=== PATIENT | female | born 1945 | race Caucasian/White ===

== ENCOUNTER → 2016-08-27 | Outpatient (CLI) | payer OTHER ==
[~2016-08-27] MED LIST: ALLOPURINOL100 MG PO; APRESOLINE100 MG PO; ASCORBIC ACID250 MG PO; ASPIR 8181 M1 PO; ASTROVASTIN; CARDURA8 MG PO; COREG25 M1 PO; COZAAR50 MG PO; DUONEB 2.5-0.5 M3 ML AEROSOL; ELIQUIS5 MG PO; FISH OIL300 MG PO; FUROSEMIDE20 MG PO; FUROSEMIDE40 MG PO; IRON325 M1 PO; LANOXIN62.5 MCG PO; LEVEMIR FL100 UNIT/1 SC; LEVEMIR100 UNIT/2 SC; LIPITOR80 MG PO; METFORMIN HCL500 M1 PO; NABI650T PO; NOVOLOG 10100 UNITS/ SC; VITAMIN D31000 UNIT PO; VITAMIN D5000 UNIT PO
== END | disposition home or self-care (01) ==
LOC: NUC 14:16
DX: E11.610 Type 2 diabetes mellitus with diabetic neuropathic arthropathy (principal); L03.116 Cellulitis of left lower limb; L97.523 Non-pressure chronic ulcer of other part of left foot with necrosis of muscle; E11.40 Type 2 diabetes mellitus with diabetic neuropathy, unspecified; G60.8 Other hereditary and idiopathic neuropathies
CPT/HCPCS: 78315; 78999; A9503

== ENCOUNTER 2017-04-09 11:03 | Inpatient (IN) | payer OTHER ==
[~2017-04-09] VITALS: Ht 167.6 cm; Wt 150.0 kg
[~2017-04-09 11:03] MED LIST changes: +BUMEX2 MG PO; +BYSTOLIC10 MG PO; +CATAPRES0.2 MG PO; +IRON160 M1 PO; +PROCRIT10000 UNI1 SC
[2017-04-09 13:42] LABS: HEMATOCRIT 31.3 % (36.0-46.0); MCH 28.8 PG (29.0-34.0); MCHC 31.9 G/DL (30.0-36.0); MCV 90.2 FL (83-99); PLATELET COUNT 89 K/uL (156-360); RBC DIS.WIDTH-CV 19.5 % (11.8-14.6); RED BLOOD COUNT 3.47 M/uL (3.80-5.20); WHITE BLOOD COUNT 5.5 K/uL (4.1-10.2)
[2017-04-09 13:45] LABS: CHLORIDE 106 mEq/L (99-109); SODIUM 137 mEq/L (136-147)
[2017-04-09 13:47] LABS: GLUCOSE 129 mg/dL (70-99)
[2017-04-09 13:48] LABS: ANION GAP 14 MEQ/L (2-14)
[2017-04-09 13:50] LABS: GFR ESTIMATE (CALCULATED) 5 mL/min/
[2017-04-09 13:59] LABS: TROP-I INTERPRETATION NEGATIVE; TROPONIN-I 0.02 ng/mL (0.0-0.30)
[2017-04-09 14:03] LABS: POTASSIUM 6.2 mEq/L (3.7-5.4); UREA NITROGEN (BUN) 166 mg/dL (9-23)
[2017-04-09] MEDS ORDERED: AMLODIPINE BESY10 MG PO (15:18)
[2017-04-09] MEDS ORDERED: IRON325 M1 PO (15:19)
[2017-04-09 16:30] LABS: ADD MIUA? YES; BILIRUBIN NEGATIVE; BLOOD NEGATIVE; COLOR YELLOW ((YELLOW)); GLUCOSE (STRIP) NEGATIVE; KETONES NEGATIVE; LEUKOCYTES NEGATIVE; NITRITE NEGATIVE; PROTEIN (STRIP) 100; SPECIFIC GRAVITY 1.017 (1.000-1.030); UROBILINOGEN 0.2 MG/DL (0.2-1.0)
[2017-04-09 16:37] LABS: BACTERIA RARE /HPF; EPITHELIAL CELLS 1+ /HPF; HYALINE CASTS 0-5 /LPF; MUCUS TRACE /LPF; RED BLOOD CELLS 0-5 /HPF (0-5); WHITE BLOOD CELLS 0-5 /HPF (0-5)
[2017-04-09 19:45] VITALS: BP 119/58
[2017-04-09 20:33] LABS: TROP-I INTERPRETATION NEGATIVE; TROPONIN-I 0.02 ng/mL (0.0-0.30)
[2017-04-09 20:44] LABS: ANION GAP 17 MEQ/L (2-14); CHLORIDE 104 MEQ/L (99-109); GFR ESTIMATE (CALCULATED) 5 mL/min/; GLUCOSE 112 mg/dL (70-99); POTASSIUM 5.5 MEQ/L (3.7-5.4); SAMPLE HEMOLYSIS CHECK 0; SAMPLE ICTERIC CHECK 0; SAMPLE LIPEMIA CHECK 0; SODIUM 141 MEQ/L (136-147)
[2017-04-09 20:52] LABS: UREA NITROGEN (BUN) 177 mg/dL (9-23)
[2017-04-09 23:01] LABS: POINT-OF-CARE METER ID UU13113717
[2017-04-09 23:36] VITALS: BP 120/60
[2017-04-10 03:37] LABS: TROP-I INTERPRETATION NEGATIVE; TROPONIN-I 0.02 ng/mL (0.0-0.30)
[2017-04-10 03:58] VITALS: BP 121/62
[2017-04-10 07:00] LABS: HEMATOCRIT 29.4 % (36.0-46.0); MCHC 31.3 G/DL (30.0-36.0); MCV 92.7 FL (83-99); PLATELET COUNT 81 K/uL (156-360); RBC DIS.WIDTH-CV 19.8 % (11.8-14.6); RBC DIS.WIDTH-SD 66.4 % (39-53); RED BLOOD COUNT 3.17 M/uL (3.80-5.20); WHITE BLOOD COUNT 4.6 K/uL (4.1-10.2)
[2017-04-10 07:29] LABS: ANION GAP 15 MEQ/L (2-14); CHLORIDE 104 MEQ/L (99-109); GFR ESTIMATE (CALCULATED) 5 mL/min/; GLUCOSE 129 mg/dL (70-99); POTASSIUM 5.3 MEQ/L (3.7-5.4); SAMPLE HEMOLYSIS CHECK 0; SAMPLE ICTERIC CHECK 0; SAMPLE LIPEMIA CHECK 0; SODIUM 141 MEQ/L (136-147); UREA NITROGEN (BUN) 161 mg/dL (9-23)
[2017-04-10 08:00] VITALS: BP 147/66
[2017-04-10 08:36] LABS: POINT-OF-CARE METER ID UU14174225
[2017-04-10 11:56] VITALS: BP 147/67
[2017-04-10 11:59] LABS: POINT-OF-CARE METER ID UU14174225
[2017-04-10 14:13] LABS: HBSG INDEX 0.22
[2017-04-10 14:14] LABS: AHBS INDEX 0.73; HEPATITIS B SURFACE ANTIBODY Nonreactive
[2017-04-10 15:21] VITALS: BP 132/62
[2017-04-10 18:47] LABS: HEMATOCRIT 30.5 % (36.0-46.0); MCV 92.1 FL (83-99)
[2017-04-10 20:03] VITALS: BP 126/60
[2017-04-11] VITALS (7 sets, daily range): BP systolic 123–147; BP diastolic 58–69
[2017-04-11 08:44] LABS: POINT-OF-CARE METER ID UU14174225
[2017-04-11 14:05] LABS: ALKALINE PHOSPHATASE 69 IU/L (3-129); ANION GAP 13 MEQ/L (2-14); CHLORIDE 101 MEQ/L (99-109); GLUCOSE 214 mg/dL (70-99); SAMPLE HEMOLYSIS CHECK 0; SAMPLE ICTERIC CHECK 0; SAMPLE LIPEMIA CHECK 0; SODIUM 141 MEQ/L (136-147); TOTAL BILIRUBIN 0.4 MG/DL (0.0-1.0)
[2017-04-11 14:06] LABS: GFR ESTIMATE (CALCULATED) 7 mL/min/; POTASSIUM 4.1 MEQ/L (3.7-5.4); UREA NITROGEN (BUN) 142 mg/dL (9-23)
[2017-04-11 14:29] LABS: HEMATOCRIT 29.2 % (36.0-46.0); MCH 29.3 PG (29.0-34.0); MCHC 31.5 G/DL (30.0-36.0); RBC DIS.WIDTH-CV 19.8 % (11.8-14.6); RBC DIS.WIDTH-SD 66.7 % (39-53); RED BLOOD COUNT 3.14 M/uL (3.80-5.20); WHITE BLOOD COUNT 5.7 K/uL (4.1-10.2)
[2017-04-11 14:52] LABS: PLATELET COUNT 76 K/uL (156-360)
[2017-04-12 03:43] VITALS: BP 120/57
[2017-04-12 06:13] LABS: HEMATOCRIT 29.4 % (36.0-46.0); MCH 29.7 PG (29.0-34.0); MCV 92.7 FL (83-99); RBC DIS.WIDTH-CV 19.5 % (11.8-14.6); RBC DIS.WIDTH-SD 66.2 % (39-53); RED BLOOD COUNT 3.17 M/uL (3.80-5.20); WHITE BLOOD COUNT 5.9 K/uL (4.1-10.2)
[2017-04-12 06:46] LABS: EOSINOPHIL (%) 0.8 % (0-5); EOSINOPHIL COUNT 0.1 K/uL (0-0.3); IMMATURE GRANULOCYTE (%) 0.3 % (0.0-0.7); INSTRUMENT ABS NEUTROPHIL CT 4.4 K/uL; LYMPHOCYTE COUNT 0.9 K/uL (1.0-2.8); MONOCYTE (%) 9.6 % (3-12); MONOCYTE COUNT 0.6 K/uL (0-0.8); NEUTROPHIL (%) 74.6 % (45-76); NEUTROPHIL COUNT 4.4 K/uL (1.8-6.4); PLAT.SUFFICIENCY DECREASED; PLATELET COUNT 76 K/uL (156-360)
[2017-04-12 07:59] LABS: ANION GAP 12 MEQ/L (2-14); CHLORIDE 103 MEQ/L (99-109); GFR ESTIMATE (CALCULATED) 9 mL/min/; GLUCOSE 160 mg/dL (70-99); MAGNESIUM 2.5 mg/dl (1.3-2.7); POTASSIUM 4.1 MEQ/L (3.7-5.4); SAMPLE HEMOLYSIS CHECK 0; SAMPLE ICTERIC CHECK 0; SAMPLE LIPEMIA CHECK 0; SODIUM 141 MEQ/L (136-147); UREA NITROGEN (BUN) 93 mg/dL (9-23)
[2017-04-12 08:56] VITALS: BP 123/58
[2017-04-12 12:50] LABS: POINT-OF-CARE METER ID UU13113681
[2017-04-12 15:47] VITALS: BP 131/62
[2017-04-12 16:52] LABS: POINT-OF-CARE METER ID UU13113717
[2017-04-12 17:04] VITALS: BP 107/55
[2017-04-12 19:17] VITALS: BP 130/58
[2017-04-12 21:09] LABS: POINT-OF-CARE METER ID UU14188625
[2017-04-12 23:49] VITALS: BP 129/61
[2017-04-13 03:44] VITALS: BP 137/65
[2017-04-13 07:47] VITALS: BP 123/60
[2017-04-13 08:08] LABS: HEMATOCRIT 31.4 % (36.0-46.0); MCH 30.5 PG (29.0-34.0); MCHC 32.8 G/DL (30.0-36.0); MCV 92.9 FL (83-99); RBC DIS.WIDTH-CV 19.5 % (11.8-14.6); RBC DIS.WIDTH-SD 65.5 % (39-53); RED BLOOD COUNT 3.38 M/uL (3.80-5.20); WHITE BLOOD COUNT 9.1 K/uL (4.1-10.2)
[2017-04-13 08:20] LABS: ANION GAP 12 MEQ/L (2-14); CHLORIDE 102 MEQ/L (99-109); POTASSIUM 4.1 MEQ/L (3.7-5.4); SAMPLE HEMOLYSIS CHECK 0; SAMPLE ICTERIC CHECK 0; SAMPLE LIPEMIA CHECK 0; SODIUM 140 MEQ/L (136-147)
[2017-04-13 08:27] LABS: POINT-OF-CARE METER ID UU14174225
[2017-04-13 08:27] LABS: GFR ESTIMATE (CALCULATED) 12 mL/min/; GLUCOSE 166 mg/dL (70-99); UREA NITROGEN (BUN) 56 mg/dL (9-23)
[2017-04-13 08:36] LABS: PLAT.SUFFICIENCY DECREASED; PLATELET COUNT 82 K/uL (156-360)
[2017-04-13 11:39] VITALS: BP 116/56
[2017-04-13 16:05] VITALS: BP 119/56
[2017-04-13 17:13] LABS: POINT-OF-CARE METER ID UU14174225
[2017-04-14 04:50] VITALS: BP 128/84
[2017-04-14 07:31] VITALS: BP 135/63
[2017-04-14 07:47] LABS: POINT-OF-CARE METER ID UU14174225
[2017-04-14 15:55] VITALS: BP 115/54
[2017-04-14 22:27] LABS: POINT-OF-CARE USER ID BHSKTD
[2017-04-15 00:54] VITALS: BP 147/65
[2017-04-15 05:44] LABS: POINT-OF-CARE METER ID UU14188625
[2017-04-15 07:26] VITALS: BP 111/53
[2017-04-15 08:22] LABS: EOSINOPHIL (%) 1.3 % (0-5); EOSINOPHIL COUNT 0.1 K/uL (0-0.3); HEMATOCRIT 29.4 % (36.0-46.0); IMMATURE GRANULOCYTE (%) 0.4 % (0.0-0.7); INSTRUMENT ABS NEUTROPHIL CT 5.2 K/uL; LYMPHOCYTE COUNT 0.9 K/uL (1.0-2.8); MCH 29.2 PG (29.0-34.0); MCHC 31.6 G/DL (30.0-36.0); MCV 92.5 FL (83-99); MONOCYTE COUNT 0.5 K/uL (0-0.8); NEUTROPHIL (%) 77.8 % (45-76); NEUTROPHIL COUNT 5.2 K/uL (1.8-6.4); PLATELET COUNT 82 K/uL (156-360); RBC DIS.WIDTH-CV 19.5 % (11.8-14.6); RBC DIS.WIDTH-SD 64.9 % (39-53); RED BLOOD COUNT 3.18 M/uL (3.80-5.20); WHITE BLOOD COUNT 6.7 K/uL (4.1-10.2)
[2017-04-15 08:25] LABS: ANION GAP 12 MEQ/L (2-14); CHLORIDE 100 MEQ/L (99-109); POTASSIUM 4.1 MEQ/L (3.7-5.4); SAMPLE HEMOLYSIS CHECK 0; SAMPLE ICTERIC CHECK 0; SAMPLE LIPEMIA CHECK 0; SODIUM 138 MEQ/L (136-147)
[2017-04-15 08:31] LABS: GFR ESTIMATE (CALCULATED) 9 mL/min/; GLUCOSE 231 mg/dL (70-99); UREA NITROGEN (BUN) 82 mg/dL (9-23)
[2017-04-15] MEDS ORDERED: RENVELA800 MG PO (10:47)
[2017-04-15 15:24] VITALS: BP 121/60
[2017-04-15 16:32] LABS: POINT-OF-CARE METER ID UU14174225
[2017-04-15 21:36] LABS: POINT-OF-CARE METER ID UU14174225
[2017-04-16 00:43] VITALS: BP 124/58
[2017-04-16 07:21] VITALS: BP 123/58
[2017-04-16 11:27] LABS: POINT-OF-CARE METER ID UU14174225
== END 2017-04-16 15:53 | DRG 682 ==
LOC: EME 11:03 → ENRESERV 14:28 → EDOF 14:31 → 5SOUTH 14:31 → ENRESERV 14:55 → 5SOUTH 17:08
PROVIDERS: Emergency Medicine; Internal Medicine; Internal Medicine Nephrology; Nurse Practitioner Adult Health; Physician Assistant Medical
PROC: 02HV33Z Insertion of Infusion Device into Superior Vena Cava, Percutaneous Approach (ICD-10-PCS; principal; 2017-04-09)
PROC: 5A1D60Z (ICD-10-PCS; 2017-04-10)
DX: N17.9 Acute kidney failure, unspecified (principal); J44.0 Chronic obstructive pulmonary disease with (acute) lower respiratory infection; E87.5 Hyperkalemia; E11.22 Type 2 diabetes mellitus with diabetic chronic kidney disease; E87.2 Acidosis; I27.2 Other secondary pulmonary hypertension; J18.9 Pneumonia, unspecified organism; J98.11 Atelectasis; D69.6 Thrombocytopenia, unspecified; D63.1 Anemia in chronic kidney disease; G47.33 Obstructive sleep apnea (adult) (pediatric); I48.91 Unspecified atrial fibrillation; E66.9 Obesity, unspecified; Z68.43 Body mass index [BMI] 50.0-59.9, adult; M10.9 Gout, unspecified; L89.622 Pressure ulcer of left heel, stage 2; I83.018 Varicose veins of right lower extremity with ulcer other part of lower leg; L97.811 Non-pressure chronic ulcer of other part of right lower leg limited to breakdown of skin; L89.899 Pressure ulcer of other site, unspecified stage; R21 Rash and other nonspecific skin eruption; E78.00 Pure hypercholesterolemia, unspecified; I25.10 Atherosclerotic heart disease of native coronary artery without angina pectoris; I50.30 Unspecified diastolic (congestive) heart failure; N28.1 Cyst of kidney, acquired; E11.610 Type 2 diabetes mellitus with diabetic neuropathic arthropathy; N18.6 End stage renal disease; I13.2 Hypertensive heart and chronic kidney disease with heart failure and with stage 5 chronic kidney disease, or end stage renal disease
CPT/HCPCS: 36415; 71010; 71250; 74176; 80048; 80048 91; 80053; 80069; 81003; 82948; 83540; 83735; 84100; 84466; 84484; 85014; 85018; 85025; 85027; 86706; 87086; 87340; 93005; 93306; 99202; 99281; 99285; C1750; C1894; J0456; J0610; J0690; J0696; J0881; J1644; J1815; J1940; J2250; J2405; J3010; J7050; P9047; S0020

== ENCOUNTER 2017-06-26 10:46 | Day surgery (SDC) | payer OTHER ==
[~2017-06-26] VITALS: Ht 167.6 cm; Wt 119.7 kg
[~2017-06-26 10:46] MED LIST changes: +AMLODIPINE BESY10 MG PO; +CARVEDILOL25 MG PO; +DIALYVITE 3,001 EACH PO; +RENVELA800 MG PO
[2017-06-26 11:25] LABS: HEMATOCRIT 32.5 % (36.0-46.0); MCH 31.8 PG (29.0-34.0); MCHC 32.3 G/DL (30.0-36.0); MCV 98.5 FL (83-99); MEAN PLAT.VOLUME 11.4 uM^3 (9.5-12.4); PLATELET COUNT 144 K/uL (156-360); RBC DIS.WIDTH-CV 17.7 % (11.8-14.6); RBC DIS.WIDTH-SD 63.2 % (39-53); WHITE BLOOD COUNT 4.6 K/uL (4.1-10.2)
[2017-06-26 11:38] VITALS: BP 120/57
[2017-06-26 11:44] LABS: ANION GAP 12 MEQ/L (2-14); CHLORIDE 96 MEQ/L (99-109); POTASSIUM 3.8 MEQ/L (3.7-5.4); SAMPLE HEMOLYSIS CHECK 0; SAMPLE ICTERIC CHECK 0; SAMPLE LIPEMIA CHECK 0; SODIUM 138 MEQ/L (136-147)
[2017-06-26 11:50] LABS: GFR ESTIMATE (CALCULATED) 14 mL/min/; GLUCOSE 155 mg/dL (70-99); UREA NITROGEN (BUN) 21 mg/dL (9-23)
[2017-06-26 12:03] LABS: POINT-OF-CARE METER ID UU14174212
[2017-06-26 12:19] LABS: METH RESISTANT S AUREUS PCR POSITIVE (NEGATIVE)
[2017-06-26 12:27] LABS: PROBE CHECK PASS
[2017-06-26 16:05] VITALS: BP 105/53
[2017-06-26 16:10] LABS: POINT-OF-CARE METER ID UU13113675
[2017-06-26 16:40] VITALS: BP 105/59
== END 2017-06-26 16:50 | disposition home or self-care (01) ==
LOC: SDC 10:46
PROVIDERS: Surgery
DX: I12.0 Hypertensive chronic kidney disease with stage 5 chronic kidney disease or end stage renal disease (principal); E11.22 Type 2 diabetes mellitus with diabetic chronic kidney disease; N18.6 End stage renal disease; Z99.2 Dependence on renal dialysis; I25.10 Atherosclerotic heart disease of native coronary artery without angina pectoris; I48.91 Unspecified atrial fibrillation; Z79.01 Long term (current) use of anticoagulants; Z79.4 Long term (current) use of insulin; I44.0 Atrioventricular block, first degree
CPT/HCPCS: 80048; 82948; 85027; 87641; J0690; J1644; J2250; J2405; J2720; J3010

== ENCOUNTER → 2017-09-27 | Outpatient (CLI) | payer OTHER ==
[~2017-09-27] MED LIST changes: +LIPITOR40 MG PO
== END | disposition home or self-care (01) ==
LOC: AMB 08:13
PROC: 02PYX3Z Removal of Infusion Device from Great Vessel, External Approach (ICD-10-PCS; principal; 2017-09-27)
DX: Z45.2 Encounter for adjustment and management of vascular access device (principal); N18.6 End stage renal disease

== ENCOUNTER 2017-10-24 10:31 | Inpatient (IN) | payer OTHER ==
[~2017-10-24] VITALS: Ht 167.6 cm; Wt 113.0 kg
[2017-10-24 11:22] LABS: BASOPHIL (%) 0.1 % (0-1); EOSINOPHIL (%) 0 % (0-5); HEMATOCRIT 30.6 % (36.0-46.0); HEMOGLOBIN 10.3 G/DL (11.9-15.5); IMMATURE GRANULOCYTE (%) 1.6 % (0.0-0.7); LYMPHOCYTE (%) 6.8 % (15-42); LYMPHOCYTE COUNT 0.8 K/uL (1.0-2.8); MCH 32.1 PG (29.0-34.0); MCHC 33.7 G/DL (30.0-36.0); MCV 95.3 FL (83-99); MONOCYTE (%) 6.5 % (3-12); MONOCYTE COUNT 0.8 K/uL (0-0.8); NEUTROPHIL COUNT 10.2 K/uL (1.8-6.4); PLATELET COUNT 119 K/uL (156-360); RBC DIS.WIDTH-CV 17.4 % (11.8-14.6); RBC DIS.WIDTH-SD 61.6 % (39-53); RED BLOOD COUNT 3.21 M/uL (3.80-5.20); WHITE BLOOD COUNT 11.9 K/uL (4.1-10.2)
[2017-10-24 11:31] LABS: CHLORIDE 94 mEq/L (99-109); POTASSIUM 4.3 mEq/L (3.7-5.4); SODIUM 138 mEq/L (136-147)
[2017-10-24 11:33] LABS: GLUCOSE 78 mg/dL (70-99)
[2017-10-24 11:37] LABS: CREATININE 9.1 mg/dL (0.6-1.3); GFR ESTIMATE (CALCULATED) 5 mL/min/
[2017-10-24 11:38] LABS: UREA NITROGEN (BUN) 98 mg/dL (9-23)
[2017-10-24] MEDS ORDERED: CARDURA8 MG PO (22:15)
[2017-10-24] MEDS ORDERED: BYSTOLIC10 MG PO (22:16)
[2017-10-24] MEDS ORDERED: AMLODIPINE BESY10 MG PO (22:16)
[2017-10-25] VITALS (7 sets, daily range): BP systolic 96–116; BP diastolic 51–60
[2017-10-25 05:15] LABS: C-REACTIVE PROTEIN 343.9 MG/L (0-10)
[2017-10-25 06:13] LABS: HEMATOCRIT 31.2 % (36.0-46.0); HEMOGLOBIN 10.1 G/DL (11.9-15.5); MCHC 32.4 G/DL (30.0-36.0); MCV 95.7 FL (83-99); PLATELET COUNT 128 K/uL (156-360); RBC DIS.WIDTH-CV 17.4 % (11.8-14.6); RBC DIS.WIDTH-SD 60.5 % (39-53); RED BLOOD COUNT 3.26 M/uL (3.80-5.20); WHITE BLOOD COUNT 6.3 K/uL (4.1-10.2)
[2017-10-25 06:23] LABS: ALBUMIN 2.7 G/DL (3.2-4.8); ALKALINE PHOSPHATASE 110 IU/L (3-129); ALT (GPT) 86 IU/L (3-49); AST (GOT) 136 IU/L (2-34); CHLORIDE 96 MEQ/L (99-109); GFR ESTIMATE (CALCULATED) 9 mL/min/; POTASSIUM 4.7 MEQ/L (3.7-5.4); SODIUM 136 MEQ/L (136-147); TOTAL BILIRUBIN 0.9 MG/DL (0.0-1.0); TOTAL PROTEIN 6.7 G/DL (6.4-8.3); UREA NITROGEN (BUN) 50 mg/dL (9-23)
[2017-10-25 06:26] LABS: CREATININE 5.2 MG/DL (0.6-1.3); GLUCOSE 174 mg/dL (70-99)
[2017-10-25 07:59] LABS: ERTH.SED.RATE > 130 MM/HR (0-30)
[2017-10-26 03:46] VITALS: BP 111/61
[2017-10-26 08:37] VITALS: BP 108/62
[2017-10-26 16:20] VITALS: BP 112/58
[2017-10-27 00:23] VITALS: BP 125/60
[2017-10-27 08:39] VITALS: BP 134/66
[2017-10-27 09:38] LABS: HEMATOCRIT 32.5 % (36.0-46.0); HEMOGLOBIN 10.9 G/DL (11.9-15.5); MCH 31.5 PG (29.0-34.0); MCHC 33.5 G/DL (30.0-36.0); MCV 93.9 FL (83-99); RBC DIS.WIDTH-CV 17.5 % (11.8-14.6); RBC DIS.WIDTH-SD 60.4 % (39-53); RED BLOOD COUNT 3.46 M/uL (3.80-5.20); WHITE BLOOD COUNT 14.5 K/uL (4.1-10.2)
[2017-10-27 09:41] LABS: PLATELET COUNT 189 K/uL (156-360)
[2017-10-27 09:58] LABS: TROP-I INTERPRETATION NEGATIVE; TROPONIN-I 0.03 ng/mL (0.0-0.30)
[2017-10-27 10:03] LABS: CHLORIDE 92 MEQ/L (99-109); CREATININE 5.8 MG/DL (0.6-1.3); GFR ESTIMATE (CALCULATED) 8 mL/min/; GLUCOSE 159 mg/dL (70-99); POTASSIUM 4.2 MEQ/L (3.7-5.4); SODIUM 132 MEQ/L (136-147)
[2017-10-27 10:04] LABS: UREA NITROGEN (BUN) 100 mg/dL (9-23)
[2017-10-27 12:40] VITALS: BP 142/76
[2017-10-27 16:30] VITALS: BP 98/54
[2017-10-27 22:07] VITALS: BP 103/55
[2017-10-28 00:08] VITALS: BP 112/58
[2017-10-28 04:24] VITALS: BP 103/51
[2017-10-28 05:58] LABS: BASOPHIL (%) 0.1 % (0-1); EOSINOPHIL (%) 0.4 % (0-5); HEMATOCRIT 30.2 % (36.0-46.0); HEMOGLOBIN 10.3 G/DL (11.9-15.5); IMMATURE GRANULOCYTE (%) 1.7 % (0.0-0.7); LYMPHOCYTE (%) 9.2 % (15-42); LYMPHOCYTE COUNT 0.9 K/uL (1.0-2.8); MCH 32.1 PG (29.0-34.0); MCHC 34.1 G/DL (30.0-36.0); MCV 94.1 FL (83-99); MONOCYTE COUNT 0.5 K/uL (0-0.8); NEUTROPHIL (%) 83.6 % (45-76); NEUTROPHIL COUNT 8.5 K/uL (1.8-6.4); PLATELET COUNT 144 K/uL (156-360); RBC DIS.WIDTH-CV 17.5 % (11.8-14.6); RBC DIS.WIDTH-SD 60.4 % (39-53); RED BLOOD COUNT 3.21 M/uL (3.80-5.20); WHITE BLOOD COUNT 10.2 K/uL (4.1-10.2)
[2017-10-28 06:33] LABS: CHLORIDE 93 MEQ/L (99-109); CREATININE 6.4 MG/DL (0.6-1.3); GFR ESTIMATE (CALCULATED) 7 mL/min/; GLUCOSE 216 mg/dL (70-99); SODIUM 131 MEQ/L (136-147)
[2017-10-28 06:56] LABS: UREA NITROGEN (BUN) 121 mg/dL (9-23)
[2017-10-28 09:32] LABS: VANCOMYCIN, TROUGH 20.1 MCG/ML (10-20)
[2017-10-28 12:20] VITALS: BP 98/54
[2017-10-28 15:57] VITALS: BP 123/58
[2017-10-28 19:42] VITALS: BP 108/55
[2017-10-28 23:22] VITALS: BP 113/56
[2017-10-29 04:11] VITALS: BP 117/57
[2017-10-29 05:33] LABS: BASOPHIL (%) 0.1 % (0-1); EOSINOPHIL (%) 0.2 % (0-5); HEMATOCRIT 30.6 % (36.0-46.0); HEMOGLOBIN 9.8 G/DL (11.9-15.5); IMMATURE GRANULOCYTE (%) 3.5 % (0.0-0.7); LYMPHOCYTE (%) 11.5 % (15-42); MCH 30.5 PG (29.0-34.0); MCV 95.3 FL (83-99); MONOCYTE (%) 6.7 % (3-12); MONOCYTE COUNT 0.6 K/uL (0-0.8); NEUTROPHIL COUNT 6.9 K/uL (1.8-6.4); PLATELET COUNT 120 K/uL (156-360); RBC DIS.WIDTH-CV 17.5 % (11.8-14.6); RBC DIS.WIDTH-SD 61.3 % (39-53); RED BLOOD COUNT 3.21 M/uL (3.80-5.20); WHITE BLOOD COUNT 8.8 K/uL (4.1-10.2)
[2017-10-29 05:46] LABS: CHLORIDE 97 MEQ/L (99-109); GFR ESTIMATE (CALCULATED) 10 mL/min/; GLUCOSE 167 mg/dL (70-99); POTASSIUM 3.9 MEQ/L (3.7-5.4); SODIUM 133 MEQ/L (136-147); UREA NITROGEN (BUN) 74 mg/dL (9-23)
[2017-10-29 05:47] LABS: CREATININE 4.8 MG/DL (0.6-1.3)
[2017-10-29 08:33] VITALS: BP 108/54
[2017-10-29 12:30] VITALS: BP 98/42
[2017-10-29 16:30] VITALS: BP 90/58
[2017-10-29 19:17] VITALS: BP 115/55
[2017-10-29 23:00] VITALS: BP 122/60
[2017-10-30 04:10] VITALS: BP 123/58
[2017-10-30 05:28] LABS: BASOPHIL (%) 0.1 % (0-1); EOSINOPHIL (%) 0.5 % (0-5); HEMATOCRIT 29.3 % (36.0-46.0); HEMOGLOBIN 9.7 G/DL (11.9-15.5); IMMATURE GRANULOCYTE (%) 2.1 % (0.0-0.7); LYMPHOCYTE (%) 14.3 % (15-42); LYMPHOCYTE COUNT 1.2 K/uL (1.0-2.8); MCH 31.4 PG (29.0-34.0); MCHC 33.1 G/DL (30.0-36.0); MCV 94.8 FL (83-99); MONOCYTE (%) 5.2 % (3-12); MONOCYTE COUNT 0.4 K/uL (0-0.8); NEUTROPHIL (%) 77.8 % (45-76); NEUTROPHIL COUNT 6.4 K/uL (1.8-6.4); PLATELET COUNT 109 K/uL (156-360); RBC DIS.WIDTH-CV 17.6 % (11.8-14.6); RBC DIS.WIDTH-SD 61.6 % (39-53); RED BLOOD COUNT 3.09 M/uL (3.80-5.20); WHITE BLOOD COUNT 8.2 K/uL (4.1-10.2)
[2017-10-30 05:50] LABS: C-REACTIVE PROTEIN 150.4 MG/L (0-10); CHLORIDE 95 MEQ/L (99-109); SODIUM 133 MEQ/L (136-147)
[2017-10-30 05:52] LABS: CREATININE 6.2 MG/DL (0.6-1.3); GFR ESTIMATE (CALCULATED) 7 mL/min/; GLUCOSE 112 mg/dL (70-99); POTASSIUM 4.7 MEQ/L (3.7-5.4)
[2017-10-30 05:54] LABS: ERTH.SED.RATE 100 MM/HR (0-30)
[2017-10-30 06:00] LABS: UREA NITROGEN (BUN) 100 mg/dL (9-23)
[2017-10-30 08:00] VITALS: BP 112/58
[2017-10-30 12:39] VITALS: BP 108/50
[2017-10-30 20:40] VITALS: BP 112/56
[2017-10-30 23:51] VITALS: BP 124/60
[2017-10-31 03:09] VITALS: BP 101/52
[2017-10-31 05:48] LABS: BASOPHIL (%) 0 % (0-1); EOSINOPHIL (%) 0.2 % (0-5); HEMATOCRIT 28.8 % (36.0-46.0); HEMOGLOBIN 9.5 G/DL (11.9-15.5); IMMATURE GRANULOCYTE (%) 1.6 % (0.0-0.7); LYMPHOCYTE (%) 9.4 % (15-42); LYMPHOCYTE COUNT 0.8 K/uL (1.0-2.8); MCH 31.5 PG (29.0-34.0); MCV 95.4 FL (83-99); MONOCYTE (%) 5.6 % (3-12); MONOCYTE COUNT 0.5 K/uL (0-0.8); NEUTROPHIL (%) 83.2 % (45-76); NEUTROPHIL COUNT 6.9 K/uL (1.8-6.4); PLATELET COUNT 109 K/uL (156-360); RBC DIS.WIDTH-CV 17.7 % (11.8-14.6); RBC DIS.WIDTH-SD 61.1 % (39-53); RED BLOOD COUNT 3.02 M/uL (3.80-5.20); WHITE BLOOD COUNT 8.3 K/uL (4.1-10.2)
[2017-10-31 06:30] LABS: CHLORIDE 97 MEQ/L (99-109); GFR ESTIMATE (CALCULATED) 11 mL/min/; GLUCOSE 143 mg/dL (70-99); POTASSIUM 4.4 MEQ/L (3.7-5.4); SODIUM 135 MEQ/L (136-147); UREA NITROGEN (BUN) 51 mg/dL (9-23)
[2017-10-31 06:37] LABS: CREATININE 4.1 MG/DL (0.6-1.3)
[2017-10-31 07:43] VITALS: BP 94/48
[2017-10-31 07:57] VITALS: BP 98/55
[2017-10-31 16:34] VITALS: BP 94/54
[2017-10-31 23:48] VITALS: BP 113/57
[2017-11-01 06:47] LABS: BASOPHIL (%) 0.1 % (0-1); EOSINOPHIL (%) 0.2 % (0-5); HEMATOCRIT 26.6 % (36.0-46.0); HEMOGLOBIN 8.8 G/DL (11.9-15.5); LYMPHOCYTE (%) 10.5 % (15-42); LYMPHOCYTE COUNT 1.1 K/uL (1.0-2.8); MCH 31.7 PG (29.0-34.0); MCHC 33.1 G/DL (30.0-36.0); MCV 95.7 FL (83-99); MONOCYTE (%) 5.5 % (3-12); MONOCYTE COUNT 0.6 K/uL (0-0.8); NEUTROPHIL (%) 82.7 % (45-76); PLATELET COUNT 102 K/uL (156-360); RBC DIS.WIDTH-CV 17.6 % (11.8-14.6); RBC DIS.WIDTH-SD 62.2 % (39-53); RED BLOOD COUNT 2.78 M/uL (3.80-5.20); WHITE BLOOD COUNT 10.9 K/uL (4.1-10.2)
[2017-11-01 07:11] LABS: CHLORIDE 96 MEQ/L (99-109); GFR ESTIMATE (CALCULATED) 8 mL/min/; POTASSIUM 4.5 MEQ/L (3.7-5.4); SODIUM 131 MEQ/L (136-147); UREA NITROGEN (BUN) 73 mg/dL (9-23); VANCOMYCIN, TROUGH 15.3 MCG/ML (10-20)
[2017-11-01 07:15] LABS: CREATININE 5.7 MG/DL (0.6-1.3); GLUCOSE 92 mg/dL (70-99)
[2017-11-01 08:45] VITALS: BP 110/52
[2017-11-01 23:44] VITALS: BP 107/59
[2017-11-02 06:31] LABS: C DIFF TOXIN POSITIVE (NEGATIVE)
[2017-11-02 06:40] LABS: BASOPHIL (%) 0.1 % (0-1); EOSINOPHIL (%) 0.2 % (0-5); HEMATOCRIT 26.5 % (36.0-46.0); HEMOGLOBIN 8.4 G/DL (11.9-15.5); IMMATURE GRANULOCYTE (%) 1.1 % (0.0-0.7); LYMPHOCYTE (%) 7.8 % (15-42); LYMPHOCYTE COUNT 0.7 K/uL (1.0-2.8); MCH 30.3 PG (29.0-34.0); MCHC 31.7 G/DL (30.0-36.0); MCV 95.7 FL (83-99); MONOCYTE (%) 4.7 % (3-12); MONOCYTE COUNT 0.4 K/uL (0-0.8); NEUTROPHIL (%) 86.1 % (45-76); NEUTROPHIL COUNT 7.9 K/uL (1.8-6.4); PLATELET COUNT 100 K/uL (156-360); RBC DIS.WIDTH-CV 17.6 % (11.8-14.6); RBC DIS.WIDTH-SD 61.3 % (39-53); RED BLOOD COUNT 2.77 M/uL (3.80-5.20); WHITE BLOOD COUNT 9.2 K/uL (4.1-10.2)
[2017-11-02 07:06] LABS: CHLORIDE 98 MEQ/L (99-109); GFR ESTIMATE (CALCULATED) 10 mL/min/; GLUCOSE 94 mg/dL (70-99); POTASSIUM 4.5 MEQ/L (3.7-5.4); SODIUM 134 MEQ/L (136-147); UREA NITROGEN (BUN) 57 mg/dL (9-23)
[2017-11-02 07:07] LABS: CREATININE 4.5 MG/DL (0.6-1.3)
[2017-11-02 23:14] VITALS: BP 116/64
[2017-11-03 09:48] VITALS: BP 102/58
[2017-11-03 12:31] VITALS: BP 108/62
[2017-11-03 15:21] VITALS: BP 92/38
[2017-11-03 17:10] VITALS: BP 100/50
[2017-11-03 23:34] VITALS: BP 125/58
[2017-11-04 08:10] VITALS: BP 101/49
[2017-11-04 13:44] LABS: TROP-I INTERPRETATION NEGATIVE; TROPONIN-I 0.03 ng/mL (0.0-0.30)
[2017-11-04 14:56] LABS: BASOPHIL (%) 0.3 % (0-1); EOSINOPHIL (%) 0.3 % (0-5); HEMATOCRIT 22.8 % (36.0-46.0); HEMOGLOBIN 7.6 G/DL (11.9-15.5); IMMATURE GRANULOCYTE (%) 0.9 % (0.0-0.7); LYMPHOCYTE COUNT 0.7 K/uL (1.0-2.8); MCH 31.3 PG (29.0-34.0); MCHC 33.3 G/DL (30.0-36.0); MCV 93.8 FL (83-99); MONOCYTE (%) 5.3 % (3-12); MONOCYTE COUNT 0.4 K/uL (0-0.8); NEUTROPHIL (%) 84.2 % (45-76); NEUTROPHIL COUNT 6.7 K/uL (1.8-6.4); PLATELET COUNT 125 K/uL (156-360); RBC DIS.WIDTH-CV 17.7 % (11.8-14.6); RED BLOOD COUNT 2.43 M/uL (3.80-5.20)
[2017-11-04 15:23] LABS: CHLORIDE 94 MEQ/L (99-109); GFR ESTIMATE (CALCULATED) 5 mL/min/; PHOSPHORUS 8.3 mg/dL (2.5-4.9); POTASSIUM 5.4 MEQ/L (3.7-5.4); SODIUM 130 MEQ/L (136-147)
[2017-11-04 15:27] LABS: CREATININE 7.9 MG/DL (0.6-1.3); GLUCOSE 146 mg/dL (70-99); UREA NITROGEN (BUN) 115 mg/dL (9-23)
[2017-11-04 22:00] VITALS: BP 112/58; BP 112/68
[2017-11-04 23:56] VITALS: BP 118/53
[2017-11-05 03:30] VITALS: BP 100/46
[2017-11-05 08:05] LABS: HEMATOCRIT 26.3 % (36.0-46.0); HEMOGLOBIN 8.8 G/DL (11.9-15.5); MCH 30.6 PG (29.0-34.0); MCHC 33.5 G/DL (30.0-36.0); MCV 91.3 FL (83-99); PLATELET COUNT 106 K/uL (156-360); RBC DIS.WIDTH-CV 19.1 % (11.8-14.6); RBC DIS.WIDTH-SD 64.5 % (39-53); RED BLOOD COUNT 2.88 M/uL (3.80-5.20); WHITE BLOOD COUNT 6.8 K/uL (4.1-10.2)
[2017-11-05 08:10] VITALS: BP 106/49
[2017-11-05 08:19] LABS: CHLORIDE 98 MEQ/L (99-109); SODIUM 136 MEQ/L (136-147)
[2017-11-05 08:26] LABS: GFR ESTIMATE (CALCULATED) 11 mL/min/; GLUCOSE 113 mg/dL (70-99)
[2017-11-05 08:28] LABS: CREATININE 4.1 MG/DL (0.6-1.3); UREA NITROGEN (BUN) 45 mg/dL (9-23)
[2017-11-05 08:29] LABS: POTASSIUM 4.2 MEQ/L (3.7-5.4); TROP-I INTERPRETATION NEGATIVE; TROPONIN-I 0.09 ng/mL (0.0-0.30)
[2017-11-05 16:40] VITALS: BP 102/62
[2017-11-05 20:17] VITALS: BP 106/52
== END 2017-11-05 23:15 | disposition short-term general hospital (02) | DRG 288 ==
LOC: EME 10:31 → EDOF 22:44 → 3EAST 22:44 → ENRESERV 22:46 → 3EAST 10-25 01:05
PROVIDERS: Emergency Medicine; Hospitalist; Internal Medicine; Internal Medicine Cardiovascular Disease; Internal Medicine Nephrology; Physician Assistant; Student in an Organized Health Care Education/Training Program
PROC: B24BZZ4 Ultrasonography of Heart with Aorta, Transesophageal (ICD-10-PCS; principal; 2017-10-24)
PROC: 5A1D70Z Performance of Urinary Filtration, Intermittent, Less than 6 Hours Per Day (ICD-10-PCS; 2017-10-24)
PROC: 0Y9H0ZX Drainage of Right Lower Leg, Open Approach, Diagnostic (ICD-10-PCS; 2017-10-28)
PROC: 30233N1 Transfusion of Nonautologous Red Blood Cells into Peripheral Vein, Percutaneous Approach (ICD-10-PCS; 2017-11-04)
DX: I33.0 Acute and subacute infective endocarditis (principal); L03.116 Cellulitis of left lower limb; A04.72 Enterocolitis due to Clostridium difficile, not specified as recurrent; I13.2 Hypertensive heart and chronic kidney disease with heart failure and with stage 5 chronic kidney disease, or end stage renal disease; L03.115 Cellulitis of right lower limb; J44.1 Chronic obstructive pulmonary disease with (acute) exacerbation; E11.610 Type 2 diabetes mellitus with diabetic neuropathic arthropathy; E11.621 Type 2 diabetes mellitus with foot ulcer; L02.415 Cutaneous abscess of right lower limb; I48.2 Chronic atrial fibrillation; E11.22 Type 2 diabetes mellitus with diabetic chronic kidney disease; D69.6 Thrombocytopenia, unspecified; M86.9 Osteomyelitis, unspecified; A49.02 Methicillin resistant Staphylococcus aureus infection, unspecified site; G47.33 Obstructive sleep apnea (adult) (pediatric); N18.6 End stage renal disease; E11.42 Type 2 diabetes mellitus with diabetic polyneuropathy; E78.5 Hyperlipidemia, unspecified; E66.9 Obesity, unspecified; I35.0 Nonrheumatic aortic (valve) stenosis; E11.69 Type 2 diabetes mellitus with other specified complication; L97.529 Non-pressure chronic ulcer of other part of left foot with unspecified severity; K72.10 Chronic hepatic failure without coma; I50.9 Heart failure, unspecified; I95.3 Hypotension of hemodialysis; M85.80 Other specified disorders of bone density and structure, unspecified site; Z22.322 Carrier or suspected carrier of Methicillin resistant Staphylococcus aureus; Z99.2 Dependence on renal dialysis; Z68.37 Body mass index [BMI] 37.0-37.9, adult; Z91.15 Patient's noncompliance with renal dialysis; Z85.828 Personal history of other malignant neoplasm of skin; Z98.1 Arthrodesis status; Z83.3 Family history of diabetes mellitus; Z79.899 Other long term (current) drug therapy; Z79.01 Long term (current) use of anticoagulants
CPT/HCPCS: 71045; 73630; 73700; 80048; 80053; 80069; 80202; 82272; 82948; 84484; 85025; 85027; 85610; 85652; 86140; 86850; 86900; 86901; 86920; 87040; 87070; 87075; 87076; 87077; 87147; 87177; 87186; 87205; 87329; 87449; 87493; 87502; 87506; 87801; 93005; 93306; 93312; 93320; 93325; 93970; 94640; 94660; 94799; 97530 GO; 97530 GP; 99202; 99281; 99284; A6021; A6214; C1755; J0690; J0881; J1580; J1815; J2930; J3370; J7030; J7050; P9016; P9047

== ENCOUNTER 2018-02-04 12:16 | Inpatient (IN) | payer OTHER ==
[~2018-02-04] VITALS: Ht 167.6 cm; Wt 89.9 kg
[2018-02-04 13:09] LABS: HEMATOCRIT 29.9 % (36.0-46.0); HEMOGLOBIN 9.4 G/DL (11.9-15.5); MCH 30.3 PG (29.0-34.0); MCHC 31.4 G/DL (30.0-36.0); MCV 96.5 FL (83-99); PLATELET COUNT 280 K/uL (156-360); RBC DIS.WIDTH-CV 17.1 % (11.8-14.6); RBC DIS.WIDTH-SD 59.7 % (39-53); WHITE BLOOD COUNT 8.6 K/uL (4.1-10.2)
[2018-02-04 13:42] LABS: ALBUMIN 2.5 G/DL (3.2-4.8); ALKALINE PHOSPHATASE 100 IU/L (3-129); ALT (GPT) 15 IU/L (3-49); AST (GOT) 42 IU/L (2-34); CHLORIDE 91 MEQ/L (99-109); CREATININE 3.9 MG/DL (0.6-1.3); GFR ESTIMATE (CALCULATED) 12 mL/min/; GLUCOSE 130 mg/dL (70-99); POTASSIUM 5.4 MEQ/L (3.7-5.4); SODIUM 134 MEQ/L (136-147); TOTAL BILIRUBIN 0.6 MG/DL (0.0-1.0); TOTAL PROTEIN 6.9 G/DL (6.4-8.3); UREA NITROGEN (BUN) 29 mg/dL (9-23)
[2018-02-04 15:21] LABS: APPEARANCE TURBID ((CLEAR)); BILIRUBIN NEGATIVE; BLOOD MODERATE; COLOR YELLOW ((YELLOW)); GLUCOSE (STRIP) NEGATIVE; KETONES NEGATIVE; LEUKOCYTES MODERATE; NITRITE NEGATIVE; PROTEIN (STRIP) 100; SPECIFIC GRAVITY 1.019 (1.000-1.030); UROBILINOGEN 0.2 MG/DL (0.2-1.0)
[2018-02-04 15:49] LABS: UCUL ADDED? YES; WHITE BLOOD CELLS TNTC /HPF (0-5)
[2018-02-04] MEDS ORDERED: KEFLEX500 MG PO (16:44)
[2018-02-04] MEDS ORDERED: ELIQUIS2.5 MG PO (21:59)
[2018-02-04] MEDS ORDERED: ATORVASTATIN CA40 MG PO (22:00)
[2018-02-04] MEDS ORDERED: FERRIC CITRATE210 MG PO (22:05)
[2018-02-04] MEDS ORDERED: NOVOLOG PE100 UNITS/ SC ×2 (22:07→22:23)
[2018-02-05 04:55] VITALS: BP 115/57
[2018-02-05 06:42] LABS: HEMATOCRIT 29.9 % (36.0-46.0); HEMOGLOBIN 8.9 G/DL (11.9-15.5); MCH 29.5 PG (29.0-34.0); MCHC 29.8 G/DL (30.0-36.0); PLATELET COUNT 253 K/uL (156-360); RBC DIS.WIDTH-CV 16.9 % (11.8-14.6); RBC DIS.WIDTH-SD 61.3 % (39-53); RED BLOOD COUNT 3.02 M/uL (3.80-5.20); WHITE BLOOD COUNT 9.7 K/uL (4.1-10.2)
[2018-02-05 07:04] LABS: CHLORIDE 92 MEQ/L (99-109); GFR ESTIMATE (CALCULATED) 10 mL/min/; GLUCOSE 115 mg/dL (70-99); POTASSIUM 5.6 MEQ/L (3.7-5.4); SODIUM 137 MEQ/L (136-147); UREA NITROGEN (BUN) 38 mg/dL (9-23)
[2018-02-05 07:07] LABS: CREATININE 4.8 MG/DL (0.6-1.3)
[2018-02-05 07:45] VITALS: BP 112/52
[2018-02-05 11:09] VITALS: BP 122/58
[2018-02-05 20:00] VITALS: BP 128/68
[2018-02-05 23:21] VITALS: BP 118/60
[2018-02-06 04:00] VITALS: BP 110/68
[2018-02-06 08:24] VITALS: BP 117/63
[2018-02-06 11:21] LABS: HEPATITIS B SURFACE ANTIGEN Nonreactive
[2018-02-06 11:46] VITALS: BP 106/66
[2018-02-06 16:45] VITALS: BP 125/72
[2018-02-06 19:37] VITALS: BP 110/70
[2018-02-07 00:11] VITALS: BP 115/59
[2018-02-07 04:00] VITALS: BP 122/61
[2018-02-07 06:58] LABS: BASOPHIL (%) 0.3 % (0-1); EOSINOPHIL (%) 1.6 % (0-5); EOSINOPHIL COUNT 0.1 K/uL (0-0.3); HEMATOCRIT 30.1 % (36.0-46.0); HEMOGLOBIN 8.8 G/DL (11.9-15.5); IMMATURE GRANULOCYTE (%) 0.6 % (0.0-0.7); LYMPHOCYTE (%) 18.5 % (15-42); LYMPHOCYTE COUNT 1.3 K/uL (1.0-2.8); MCH 29.2 PG (29.0-34.0); MCHC 29.2 G/DL (30.0-36.0); MONOCYTE (%) 12.5 % (3-12); MONOCYTE COUNT 0.9 K/uL (0-0.8); NEUTROPHIL (%) 66.5 % (45-76); NEUTROPHIL COUNT 4.6 K/uL (1.8-6.4); PLATELET COUNT 252 K/uL (156-360); RBC DIS.WIDTH-CV 17.1 % (11.8-14.6); RBC DIS.WIDTH-SD 62.1 % (39-53); RED BLOOD COUNT 3.01 M/uL (3.80-5.20); WHITE BLOOD COUNT 6.9 K/uL (4.1-10.2)
[2018-02-07 07:27] LABS: CHLORIDE 92 MEQ/L (99-109); CREATININE 5.4 MG/DL (0.6-1.3); GFR ESTIMATE (CALCULATED) 8 mL/min/; GLUCOSE 99 mg/dL (70-99); POTASSIUM 5.4 MEQ/L (3.7-5.4); SODIUM 136 MEQ/L (136-147); UREA NITROGEN (BUN) 51 mg/dL (9-23)
[2018-02-07 07:35] LABS: VANCOMYCIN, TROUGH 26.1 MCG/ML (10-20)
[2018-02-07 08:19] VITALS: BP 134/66
[2018-02-07 11:36] VITALS: BP 120/80
[2018-02-07 20:07] VITALS: BP 120/60
[2018-02-07 23:32] VITALS: BP 110/60
[2018-02-08 04:53] VITALS: BP 110/60
[2018-02-08 07:42] LABS: HEMATOCRIT 29.8 % (36.0-46.0); HEMOGLOBIN 8.8 G/DL (11.9-15.5); MCH 29.3 PG (29.0-34.0); MCHC 29.5 G/DL (30.0-36.0); MCV 99.3 FL (83-99); PLATELET COUNT 246 K/uL (156-360); RBC DIS.WIDTH-CV 17.1 % (11.8-14.6); RBC DIS.WIDTH-SD 61.7 % (39-53); WHITE BLOOD COUNT 6.1 K/uL (4.1-10.2)
[2018-02-08 08:08] LABS: CHLORIDE 95 MEQ/L (99-109); GFR ESTIMATE (CALCULATED) 14 mL/min/; GLUCOSE 96 mg/dL (70-99); POTASSIUM 4.5 MEQ/L (3.7-5.4); SODIUM 138 MEQ/L (136-147); UREA NITROGEN (BUN) 26 mg/dL (9-23); VANCOMYCIN, TROUGH 17.8 MCG/ML (10-20)
[2018-02-08 08:09] LABS: CREATININE 3.4 MG/DL (0.6-1.3)
[2018-02-08 08:25] VITALS: BP 98/52
[2018-02-08 11:53] VITALS: BP 112/61
[2018-02-08 16:55] VITALS: BP 118/58
[2018-02-08 20:05] VITALS: BP 130/68
[2018-02-08 23:51] VITALS: BP 120/68
[2018-02-09 00:46] LABS: IMM.RETIC FRACTION 29.8 % (3-19); RETIC HGB EQUIVALENT 26.3 (28-36); RETICULOCYTE COUNT 1.6 % (0.5-1.8)
[2018-02-09 02:22] LABS: IRON 10 MCG/DL (35-150); TRANSFERRIN (TIBC) 90.7 mg/dL (215-380); TRANSFERRIN SATUR. 11 % (20-55)
[2018-02-09 03:57] VITALS: BP 130/82
[2018-02-09 07:51] VITALS: BP 105/60
[2018-02-09 08:03] LABS: BASOPHIL (%) 0.3 % (0-1); EOSINOPHIL (%) 1.6 % (0-5); EOSINOPHIL COUNT 0.1 K/uL (0-0.3); HEMATOCRIT 30.1 % (36.0-46.0); HEMOGLOBIN 8.8 G/DL (11.9-15.5); IMMATURE GRANULOCYTE (%) 0.6 % (0.0-0.7); LYMPHOCYTE (%) 23.7 % (15-42); LYMPHOCYTE COUNT 1.5 K/uL (1.0-2.8); MCH 28.6 PG (29.0-34.0); MCHC 29.2 G/DL (30.0-36.0); MCV 97.7 FL (83-99); MONOCYTE (%) 13.2 % (3-12); MONOCYTE COUNT 0.8 K/uL (0-0.8); NEUTROPHIL (%) 60.6 % (45-76); NEUTROPHIL COUNT 3.7 K/uL (1.8-6.4); PLATELET COUNT 235 K/uL (156-360); RBC DIS.WIDTH-CV 17.2 % (11.8-14.6); RBC DIS.WIDTH-SD 61.5 % (39-53); RED BLOOD COUNT 3.08 M/uL (3.80-5.20); WHITE BLOOD COUNT 6.2 K/uL (4.1-10.2)
[2018-02-09 08:28] LABS: ALT (GPT) 11 IU/L (3-49); CHLORIDE 94 MEQ/L (99-109); GLUCOSE 102 mg/dL (70-99); SODIUM 137 MEQ/L (136-147)
[2018-02-09 08:33] LABS: ALKALINE PHOSPHATASE 135 IU/L (3-129); AST (GOT) 23 IU/L (2-34); CREATININE 5.2 MG/DL (0.6-1.3); GFR ESTIMATE (CALCULATED) 9 mL/min/; TOTAL BILIRUBIN 0.4 MG/DL (0.0-1.0); TOTAL PROTEIN 5.8 G/DL (6.4-8.3); UREA NITROGEN (BUN) 42 mg/dL (9-23)
[2018-02-09 09:06] LABS: FOLIC ACID (FOLATE) 10.8 NG/ML (5.0-22.0)
[2018-02-09 09:38] LABS: FERRITIN 1894 NG/ML (10-291)
[2018-02-09 10:46] VITALS: BP 130/72
[2018-02-09 10:57] LABS: IRON 13 MCG/DL (35-150); TRANSFERRIN (TIBC) 87.3 mg/dL (215-380); TRANSFERRIN SATUR. 15 % (20-55)
[2018-02-09 20:42] VITALS: BP 150/65
[2018-02-09 23:45] VITALS: BP 121/64
[2018-02-10 06:03] VITALS: BP 136/93
[2018-02-10 06:20] LABS: BASOPHIL (%) 0.1 % (0-1); EOSINOPHIL (%) 1.5 % (0-5); EOSINOPHIL COUNT 0.1 K/uL (0-0.3); HEMATOCRIT 30.8 % (36.0-46.0); HEMOGLOBIN 9.2 G/DL (11.9-15.5); IMMATURE GRANULOCYTE (%) 0.6 % (0.0-0.7); LYMPHOCYTE COUNT 1.9 K/uL (1.0-2.8); MCH 28.9 PG (29.0-34.0); MCHC 29.9 G/DL (30.0-36.0); MCV 96.9 FL (83-99); MONOCYTE (%) 12.2 % (3-12); MONOCYTE COUNT 0.9 K/uL (0-0.8); NEUTROPHIL (%) 58.6 % (45-76); NEUTROPHIL COUNT 4.2 K/uL (1.8-6.4); PLATELET COUNT 223 K/uL (156-360); RBC DIS.WIDTH-CV 17.2 % (11.8-14.6); RBC DIS.WIDTH-SD 61.3 % (39-53); RED BLOOD COUNT 3.18 M/uL (3.80-5.20); WHITE BLOOD COUNT 7.2 K/uL (4.1-10.2)
[2018-02-10 06:51] LABS: CHLORIDE 94 MEQ/L (99-109); GFR ESTIMATE (CALCULATED) 7 mL/min/; GLUCOSE 96 mg/dL (70-99); POTASSIUM 5.5 MEQ/L (3.7-5.4); SODIUM 139 MEQ/L (136-147); UREA NITROGEN (BUN) 50 mg/dL (9-23)
[2018-02-10 07:05] LABS: CREATININE 6.5 MG/DL (0.6-1.3)
[2018-02-10 09:37] LABS: ALBUMIN 2.2 G/DL (3.2-4.8); CHLORIDE 92 MEQ/L (99-109); POTASSIUM 4.9 MEQ/L (3.7-5.4); SODIUM 137 MEQ/L (136-147)
[2018-02-10 09:44] LABS: CREATININE 6.5 MG/DL (0.6-1.3); GFR ESTIMATE (CALCULATED) 7 mL/min/; GLUCOSE 100 mg/dL (70-99); PHOSPHORUS 8.8 mg/dL (2.5-4.9); UREA NITROGEN (BUN) 50 mg/dL (9-23)
[2018-02-10 13:53] VITALS: BP 122/60
[2018-02-10 16:35] VITALS: BP 128/62
[2018-02-10 20:26] VITALS: BP 108/60
[2018-02-10 23:55] VITALS: BP 105/58
[2018-02-11 04:45] VITALS: BP 109/58
[2018-02-11 08:15] VITALS: BP 120/52
[2018-02-11 13:06] VITALS: BP 122/64
[2018-02-11 14:57] VITALS: BP 108/50
[2018-02-11 19:17] VITALS: BP 107/55
[2018-02-11 23:42] VITALS: BP 112/56
[2018-02-12 04:33] VITALS: BP 112/53
[2018-02-12 06:20] LABS: HEMATOCRIT 28.7 % (36.0-46.0); HEMOGLOBIN 8.2 G/DL (11.9-15.5); MCHC 28.6 G/DL (30.0-36.0); PLATELET COUNT 189 K/uL (156-360); RBC DIS.WIDTH-CV 17.3 % (11.8-14.6); RBC DIS.WIDTH-SD 62.5 % (39-53); RED BLOOD COUNT 2.93 M/uL (3.80-5.20); WHITE BLOOD COUNT 5.2 K/uL (4.1-10.2)
[2018-02-12 08:10] VITALS: BP 122/58
[2018-02-12 12:22] VITALS: BP 124/62
[2018-02-12 15:00] LABS: CHLORIDE 96 MEQ/L (99-109); CREATININE 5.8 MG/DL (0.6-1.3); GFR ESTIMATE (CALCULATED) 8 mL/min/; POTASSIUM 4.1 MEQ/L (3.7-5.4); SODIUM 138 MEQ/L (136-147); UREA NITROGEN (BUN) 28 mg/dL (9-23)
[2018-02-12 15:05] LABS: GLUCOSE 160 mg/dL (70-99); PHOSPHORUS 5.4 mg/dL (2.5-4.9)
[2018-02-12 19:41] VITALS: BP 117/58
[2018-02-12 23:35] VITALS: BP 122/62
[2018-02-13 03:46] VITALS: BP 132/63
[2018-02-13 08:16] VITALS: BP 122/58
[2018-02-13] MEDS ORDERED: VANCOMYCIN HCL1 GM IV (11:09)
[2018-02-13] MEDS ORDERED: LEVAQUIN500 MG PO (11:09)
[2018-02-13] MEDS ORDERED: DUONEB 2.5-0.5 M3 ML PEP (11:09)
[2018-02-13] MEDS ORDERED: LIDOCAINE700 MG TP (11:09)
[2018-02-13] MEDS ORDERED: CYCLOBENZAPRINE5 MG PO (11:09)
[2018-02-13] MEDS ORDERED: LEVAQUIN750 MG PO ×2 (11:09→11:21)
[2018-02-13] MEDS ORDERED: NOVOLOG 10100 UNITS/ SC (11:09)
[2018-02-13] MEDS ORDERED: OXYCODONE-APAP1 EACH PO (11:16)
[2018-02-13] MEDS ORDERED: ENDOCET 5-3251 EACH PO (11:19)
[2018-02-13 11:57] VITALS: BP 128/68
[2018-02-13] MEDS ORDERED: BYSTOLIC5 MG PO (12:14)
== END 2018-02-13 13:39 | disposition designated cancer center or children's hospital (05) | DRG 551 ==
LOC: EME 12:16 → CANRESERV 02-05 00:12 → EDOF 02-05 00:12 → ENRESERV 02-05 00:12 → 3EAST 02-05 00:12 → ENRESERV 02-05 03:14 → 3EAST 02-05 04:40
PROVIDERS: Family Medicine; Hospitalist; Internal Medicine; Internal Medicine Nephrology; Physician Assistant
PROC: 5A1D70Z Performance of Urinary Filtration, Intermittent, Less than 6 Hours Per Day (ICD-10-PCS; principal; 2018-02-05)
DX: M46.46 Discitis, unspecified, lumbar region (principal); E11.69 Type 2 diabetes mellitus with other specified complication; M46.26 Osteomyelitis of vertebra, lumbar region; R78.81 Bacteremia; B95.62 Methicillin resistant Staphylococcus aureus infection as the cause of diseases classified elsewhere; N17.9 Acute kidney failure, unspecified; J18.9 Pneumonia, unspecified organism; N39.0 Urinary tract infection, site not specified; I13.2 Hypertensive heart and chronic kidney disease with heart failure and with stage 5 chronic kidney disease, or end stage renal disease; I50.9 Heart failure, unspecified; N18.6 End stage renal disease; I27.20 Pulmonary hypertension, unspecified; E11.22 Type 2 diabetes mellitus with diabetic chronic kidney disease; E11.40 Type 2 diabetes mellitus with diabetic neuropathy, unspecified; E11.610 Type 2 diabetes mellitus with diabetic neuropathic arthropathy; Z99.2 Dependence on renal dialysis; D64.9 Anemia, unspecified; E78.5 Hyperlipidemia, unspecified; G47.33 Obstructive sleep apnea (adult) (pediatric); I48.2 Chronic atrial fibrillation; M10.9 Gout, unspecified; M54.16 Radiculopathy, lumbar region; N28.1 Cyst of kidney, acquired; R26.2 Difficulty in walking, not elsewhere classified; E66.9 Obesity, unspecified; Z68.31 Body mass index [BMI] 31.0-31.9, adult; Z79.01 Long term (current) use of anticoagulants; Z85.828 Personal history of other malignant neoplasm of skin; Z86.14 Personal history of Methicillin resistant Staphylococcus aureus infection; Z89.512 Acquired absence of left leg below knee; Z95.2 Presence of prosthetic heart valve
CPT/HCPCS: 71045; 71046; 71250; 72131; 76770; 80048; 80053; 80069; 80202; 81003; 82565; 82607; 82728; 82746; 82948; 83540; 83605; 84466; 85025; 85027; 85046; 85651; 86140; 87040; 87077; 87086; 87186; 87340; 87641; 87801; 94640; 94669; 94799; 97530 GO; 97530 GP; 99281; 99285; J0881; J1644; J2270; J2543; J3010; J3370; J7050

== ENCOUNTER 2018-02-15 18:13 | Inpatient (IN) | payer OTHER ==
[~2018-02-15] VITALS: Ht 167.6 cm; Wt 97.7 kg
[~2018-02-15 18:13] MED LIST changes: +ATORVASTATIN CA40 MG PO; +BYSTOLIC5 MG PO; +CYCLOBENZAPRINE5 MG PO; +DUONEB 2.5-0.5 M3 ML PEP; +ELIQUIS2.5 MG PO; +ENDOCET 5-3251 EACH PO; +FERRIC CITRATE210 MG PO; +KEFLEX500 MG PO; +LEVAQUIN500 MG PO; +LEVAQUIN750 MG PO; +LIDOCAINE700 MG TP; +NOVOLOG PE100 UNITS/ SC; +OXYCODONE-APAP1 EACH PO; +VANCOMYCIN HCL1 GM IV
[2018-02-15 20:04] LABS: BASOPHIL (%) 0.4 % (0-1); EOSINOPHIL (%) 0.7 % (0-5); EOSINOPHIL COUNT 0.1 K/uL (0-0.3); HEMATOCRIT 31.1 % (36.0-46.0); HEMOGLOBIN 9.4 G/DL (11.9-15.5); IMMATURE GRANULOCYTE (%) 1.5 % (0.0-0.7); LYMPHOCYTE (%) 25.2 % (15-42); LYMPHOCYTE COUNT 1.9 K/uL (1.0-2.8); MCH 29.7 PG (29.0-34.0); MCHC 30.2 G/DL (30.0-36.0); MCV 98.4 FL (83-99); MONOCYTE (%) 11.1 % (3-12); MONOCYTE COUNT 0.8 K/uL (0-0.8); NEUTROPHIL (%) 61.1 % (45-76); NEUTROPHIL COUNT 4.5 K/uL (1.8-6.4); NRBC (%) 0.8 /100 WBC (0-0); PLATELET COUNT 200 K/uL (156-360); RBC DIS.WIDTH-CV 17.7 % (11.8-14.6); RBC DIS.WIDTH-SD 62.8 % (39-53); RED BLOOD COUNT 3.16 M/uL (3.80-5.20); WHITE BLOOD COUNT 7.4 K/uL (4.1-10.2)
[2018-02-15 20:10] LABS: INTER. NORMALIZED RATIO 1.8
[2018-02-15 20:13] LABS: PTT 37.4 SEC (25-37)
[2018-02-15 20:21] LABS: ALBUMIN 2.2 g/dL (3.2-4.8); CHLORIDE 98 mEq/L (99-109); POTASSIUM 3.4 mEq/L (3.7-5.4); SODIUM 139 mEq/L (136-147)
[2018-02-15 20:24] LABS: GLUCOSE 116 mg/dL (70-99); TOTAL PROTEIN 6.8 g/dL (6.4-8.3)
[2018-02-15 20:26] LABS: TOTAL BILIRUBIN 0.4 mg/dL (0.0-1.0)
[2018-02-15 20:27] LABS: ALKALINE PHOSPHATASE 193 IU/L (3-129); GFR ESTIMATE (CALCULATED) 11 mL/min/
[2018-02-15 20:28] LABS: UREA NITROGEN (BUN) 16 mg/dL (9-23)
[2018-02-15 20:29] LABS: AST (GOT) 25 IU/L (2-34); TROP-I INTERPRETATION NEGATIVE; TROPONIN-I 0.03 ng/mL (0.0-0.30)
[2018-02-15 20:30] LABS: ALT (GPT) 13 IU/L (3-49)
[2018-02-15 20:31] LABS: LIPASE 30 U/L (1.0-51.0)
[2018-02-15 20:33] LABS: CREATININE 4.2 mg/dL (0.6-1.3)
[2018-02-16 03:30] VITALS: BP 108/55
[2018-02-16 07:34] VITALS: BP 110/59
[2018-02-16 10:55] VITALS: BP 100/63
[2018-02-16] MEDS ORDERED: AMLODIPINE BESY10 MG PO (15:21)
[2018-02-16] MEDS ORDERED: LEVEMIR FL100 UNIT/1 SC ×2 (15:23)
[2018-02-16 15:47] VITALS: BP 87/45
[2018-02-16 16:45] LABS: C DIFF TOXIN NEGATIVE (NEGATIVE)
[2018-02-16 20:28] VITALS: BP 110/57
[2018-02-17 00:17] VITALS: BP 115/59
[2018-02-17 04:39] VITALS: BP 110/62
[2018-02-17 06:47] LABS: VANCOMYCIN, TROUGH 14.6 MCG/ML (10-20)
[2018-02-17 07:35] VITALS: BP 120/60
[2018-02-17 09:26] LABS: HEMATOCRIT 29.4 % (36.0-46.0); HEMOGLOBIN 8.6 G/DL (11.9-15.5); MCH 29.1 PG (29.0-34.0); MCHC 29.3 G/DL (30.0-36.0); MCV 99.3 FL (83-99); PLATELET COUNT 212 K/uL (156-360); RBC DIS.WIDTH-CV 18.1 % (11.8-14.6); RBC DIS.WIDTH-SD 63.9 % (39-53); RED BLOOD COUNT 2.96 M/uL (3.80-5.20); WHITE BLOOD COUNT 8.4 K/uL (4.1-10.2)
[2018-02-17 09:40] LABS: CHLORIDE 95 MEQ/L (99-109); POTASSIUM 3.5 MEQ/L (3.7-5.4); SODIUM 138 MEQ/L (136-147)
[2018-02-17 10:25] LABS: CREATININE 6.1 MG/DL (0.6-1.3); GLUCOSE 120 mg/dL (70-99); UREA NITROGEN (BUN) 29 mg/dL (9-23)
[2018-02-17 10:26] LABS: GFR ESTIMATE (CALCULATED) 7 mL/min/
[2018-02-17 16:30] VITALS: BP 96/50
[2018-02-17 23:48] VITALS: BP 92/50
[2018-02-18 04:48] VITALS: BP 105/59
[2018-02-18 08:06] VITALS: BP 100/60
[2018-02-18 15:35] VITALS: BP 140/78
[2018-02-18 16:25] VITALS: BP 100/60
[2018-02-18 23:47] VITALS: BP 105/60
[2018-02-19 08:22] LABS: BASOPHIL (%) 0.2 % (0-1); EOSINOPHIL (%) 1.4 % (0-5); EOSINOPHIL COUNT 0.1 K/uL (0-0.3); HEMATOCRIT 25.8 % (36.0-46.0); HEMOGLOBIN 7.6 G/DL (11.9-15.5); IMMATURE GRANULOCYTE (%) 0.9 % (0.0-0.7); LYMPHOCYTE COUNT 1.2 K/uL (1.0-2.8); MCH 29.5 PG (29.0-34.0); MCHC 29.5 G/DL (30.0-36.0); MONOCYTE (%) 11.6 % (3-12); MONOCYTE COUNT 0.6 K/uL (0-0.8); NEUTROPHIL (%) 64.9 % (45-76); NEUTROPHIL COUNT 3.6 K/uL (1.8-6.4); PLATELET COUNT 181 K/uL (156-360); RBC DIS.WIDTH-CV 18.5 % (11.8-14.6); RBC DIS.WIDTH-SD 65.1 % (39-53); RED BLOOD COUNT 2.58 M/uL (3.80-5.20); WHITE BLOOD COUNT 5.5 K/uL (4.1-10.2)
[2018-02-19 08:51] LABS: CHLORIDE 98 MEQ/L (99-109); CREATININE 5.2 MG/DL (0.6-1.3); GFR ESTIMATE (CALCULATED) 9 mL/min/; GLUCOSE 173 mg/dL (70-99); POTASSIUM 3.8 MEQ/L (3.7-5.4); SODIUM 136 MEQ/L (136-147); UREA NITROGEN (BUN) 32 mg/dL (9-23)
[2018-02-19 08:52] LABS: VANCOMYCIN, TROUGH 28.7 MCG/ML (10-20)
[2018-02-19 12:54] VITALS: BP 97/54
[2018-02-19 16:13] LABS: HEMATOCRIT 28.9 % (36.0-46.0); HEMOGLOBIN 8.3 G/DL (11.9-15.5); MCV 100.7 FL (83-99)
[2018-02-19 16:43] VITALS: BP 98/51
[2018-02-20 00:23] VITALS: BP 86/49
[2018-02-20 00:45] VITALS: BP 88/52
[2018-02-20 06:06] LABS: BASOPHIL (%) 0.4 % (0-1); EOSINOPHIL (%) 1.2 % (0-5); EOSINOPHIL COUNT 0.1 K/uL (0-0.3); HEMOGLOBIN 8.3 G/DL (11.9-15.5); IMMATURE GRANULOCYTE (%) 1.2 % (0.0-0.7); LYMPHOCYTE (%) 22.1 % (15-42); LYMPHOCYTE COUNT 1.3 K/uL (1.0-2.8); MCH 29.4 PG (29.0-34.0); MCHC 29.6 G/DL (30.0-36.0); MCV 99.3 FL (83-99); MONOCYTE (%) 11.4 % (3-12); MONOCYTE COUNT 0.7 K/uL (0-0.8); NEUTROPHIL (%) 63.7 % (45-76); NEUTROPHIL COUNT 3.6 K/uL (1.8-6.4); PLATELET COUNT 173 K/uL (156-360); RBC DIS.WIDTH-CV 18.6 % (11.8-14.6); RBC DIS.WIDTH-SD 66.4 % (39-53); RED BLOOD COUNT 2.82 M/uL (3.80-5.20); WHITE BLOOD COUNT 5.7 K/uL (4.1-10.2)
[2018-02-20 07:42] VITALS: BP 99/50
[2018-02-20 09:36] LABS: ALKALINE PHOSPHATASE 149 IU/L (3-129); ALT (GPT) 10 IU/L (3-49); AST (GOT) 24 IU/L (2-34); CHLORIDE 98 MEQ/L (99-109); GFR ESTIMATE (CALCULATED) 15 mL/min/; POTASSIUM 4.1 MEQ/L (3.7-5.4); SODIUM 134 MEQ/L (136-147); TOTAL BILIRUBIN 0.4 MG/DL (0.0-1.0); UREA NITROGEN (BUN) 20 mg/dL (9-23)
[2018-02-20 09:39] LABS: CREATININE 3.2 MG/DL (0.6-1.3); GLUCOSE 115 mg/dL (70-99)
[2018-02-20 15:08] VITALS: BP 99/51
[2018-02-21 00:35] VITALS: BP 96/55
[2018-02-21 03:28] VITALS: BP 101/53
[2018-02-21 06:44] LABS: HEMATOCRIT 27.8 % (36.0-46.0); HEMOGLOBIN 8.1 G/DL (11.9-15.5); MCH 28.9 PG (29.0-34.0); MCHC 29.1 G/DL (30.0-36.0); MCV 99.3 FL (83-99); PLATELET COUNT 163 K/uL (156-360); RBC DIS.WIDTH-CV 18.6 % (11.8-14.6); RBC DIS.WIDTH-SD 67.5 % (39-53); WHITE BLOOD COUNT 5.7 K/uL (4.1-10.2)
[2018-02-21 07:06] LABS: CHLORIDE 98 MEQ/L (99-109); GFR ESTIMATE (CALCULATED) 9 mL/min/; GLUCOSE 93 mg/dL (70-99); POTASSIUM 4.3 MEQ/L (3.7-5.4); SODIUM 137 MEQ/L (136-147); UREA NITROGEN (BUN) 30 mg/dL (9-23); VANCOMYCIN, TROUGH 18.8 MCG/ML (10-20)
[2018-02-21 07:08] LABS: CREATININE 4.9 MG/DL (0.6-1.3)
[2018-02-21 07:10] VITALS: BP 96/51
[2018-02-21 09:45] LABS: HEMOGLOBIN A1c (GLYCOHEMOGLOB) 5.4 % (Below 5.7)
[2018-02-21 18:21] VITALS: BP 112/56
[2018-02-21 23:46] VITALS: BP 92/54
[2018-02-22 08:26] VITALS: BP 94/42
[2018-02-22 10:51] VITALS: BP 91/47
[2018-02-22 15:33] VITALS: BP 104/62
[2018-02-22 23:55] VITALS: BP 108/61
[2018-02-23 06:21] LABS: HEMATOCRIT 27.7 % (36.0-46.0); HEMOGLOBIN 8.3 G/DL (11.9-15.5); MCH 29.5 PG (29.0-34.0); MCV 98.6 FL (83-99); PLATELET COUNT 169 K/uL (156-360); RBC DIS.WIDTH-CV 18.9 % (11.8-14.6); RBC DIS.WIDTH-SD 67.9 % (39-53); RED BLOOD COUNT 2.81 M/uL (3.80-5.20); WHITE BLOOD COUNT 5.1 K/uL (4.1-10.2)
[2018-02-23 08:02] VITALS: BP 109/54
[2018-02-23 11:25] VITALS: BP 96/45
[2018-02-23 16:08] VITALS: BP 95/48
[2018-02-23 19:24] VITALS: BP 110/58
[2018-02-23 23:06] VITALS: BP 120/70
[2018-02-24 04:39] VITALS: BP 108/68
[2018-02-24 07:37] VITALS: BP 100/80
[2018-02-24 08:45] LABS: HEMATOCRIT 26.9 % (36.0-46.0); HEMOGLOBIN 8.1 G/DL (11.9-15.5); MCH 29.9 PG (29.0-34.0); MCHC 30.1 G/DL (30.0-36.0); MCV 99.3 FL (83-99); PLATELET COUNT 180 K/uL (156-360); RBC DIS.WIDTH-CV 19.4 % (11.8-14.6); RBC DIS.WIDTH-SD 68.4 % (39-53); RED BLOOD COUNT 2.71 M/uL (3.80-5.20); WHITE BLOOD COUNT 6.7 K/uL (4.1-10.2)
[2018-02-24 09:06] LABS: CHLORIDE 98 MEQ/L (99-109); GFR ESTIMATE (CALCULATED) 9 mL/min/; GLUCOSE 188 mg/dL (70-99); POTASSIUM 4.1 MEQ/L (3.7-5.4); SODIUM 135 MEQ/L (136-147); UREA NITROGEN (BUN) 29 mg/dL (9-23)
[2018-02-24 13:14] VITALS: BP 120/60
[2018-02-24 16:04] VITALS: BP 120/60
[2018-02-24 19:03] VITALS: BP 98/47
[2018-02-24 23:48] VITALS: BP 130/76
[2018-02-25 03:22] VITALS: BP 140/86
[2018-02-25 08:33] VITALS: BP 115/90
[2018-02-25 12:00] VITALS: BP 98/42
[2018-02-25] MEDS ORDERED: VANCOMYCIN HCL1 GM IV (13:15)
[2018-02-25] MEDS ORDERED: GENTAMICIN40 MG/1 ML IV (13:16)
[2018-02-25] MEDS ORDERED: CYCLOBENZAPRINE5 MG PO (13:17)
[2018-02-25] MEDS ORDERED: LEVEMIR100 UNIT/2 SC (13:20)
[2018-02-25] MEDS ORDERED: DOCUSATE SODIU100 MG PO (13:21)
[2018-02-25 15:03] VITALS: BP 96/50
[2018-02-25] MEDS ORDERED: ENDOCET 5-3251 EACH PO (15:03)
[2018-02-25 20:15] VITALS: BP 106/60
[2018-02-25 23:12] VITALS: BP 98/60
[2018-02-26 04:07] VITALS: BP 106/66
[2018-02-26 07:17] LABS: VANCOMYCIN, TROUGH 22.9 MCG/ML (10-20)
[2018-02-26 09:25] LABS: BASOPHIL (%) 0.5 % (0-1); EOSINOPHIL (%) 1.6 % (0-5); EOSINOPHIL COUNT 0.1 K/uL (0-0.3); HEMATOCRIT 26.4 % (36.0-46.0); HEMOGLOBIN 7.7 G/DL (11.9-15.5); IMMATURE GRANULOCYTE (%) 0.5 % (0.0-0.7); LYMPHOCYTE (%) 22.7 % (15-42); LYMPHOCYTE COUNT 1.4 K/uL (1.0-2.8); MCH 29.1 PG (29.0-34.0); MCHC 29.2 G/DL (30.0-36.0); MCV 99.6 FL (83-99); MONOCYTE (%) 10.9 % (3-12); MONOCYTE COUNT 0.7 K/uL (0-0.8); NEUTROPHIL (%) 63.8 % (45-76); PLATELET COUNT 175 K/uL (156-360); RBC DIS.WIDTH-CV 19.8 % (11.8-14.6); RBC DIS.WIDTH-SD 70.6 % (39-53); RED BLOOD COUNT 2.65 M/uL (3.80-5.20); WHITE BLOOD COUNT 6.3 K/uL (4.1-10.2)
[2018-02-26 09:40] LABS: ALBUMIN 2.3 G/DL (3.2-4.8); CHLORIDE 97 MEQ/L (99-109); POTASSIUM 4.2 MEQ/L (3.7-5.4); SODIUM 133 MEQ/L (136-147)
[2018-02-26 09:45] LABS: CREATININE 4.7 MG/DL (0.6-1.3); GFR ESTIMATE (CALCULATED) 10 mL/min/; GLUCOSE 163 mg/dL (70-99); UREA NITROGEN (BUN) 25 mg/dL (9-23)
== END 2018-02-26 14:25 | disposition designated cancer center or children's hospital (05) | DRG 871 ==
LOC: EME 18:13 → EDOF 02-16 00:53 → 3EAST 02-16 00:53 → EDOF 02-16 00:53 → ENRESERV 02-16 00:56 → 3EAST 02-16 01:58
PROVIDERS: Emergency Medicine; Hospitalist; Internal Medicine; Internal Medicine Infectious Disease; Internal Medicine Nephrology; Physician Assistant Medical
PROC: 0HJPXZZ Inspection of Skin, External Approach (ICD-10-PCS; principal; 2018-02-16)
PROC: 5A09357 Assistance with Respiratory Ventilation, Less than 24 Consecutive Hours, Continuous Positive Airway Pressure (ICD-10-PCS; 2018-02-17)
PROC: 5A1D70Z Performance of Urinary Filtration, Intermittent, Less than 6 Hours Per Day (ICD-10-PCS; 2018-02-17)
PROC: B24BZZ4 Ultrasonography of Heart with Aorta, Transesophageal (ICD-10-PCS; 2018-02-21)
DX: A41.02 Sepsis due to Methicillin resistant Staphylococcus aureus (principal); M46.46 Discitis, unspecified, lumbar region; E11.69 Type 2 diabetes mellitus with other specified complication; M46.26 Osteomyelitis of vertebra, lumbar region; I05.9 Rheumatic mitral valve disease, unspecified; N18.6 End stage renal disease; I12.0 Hypertensive chronic kidney disease with stage 5 chronic kidney disease or end stage renal disease; E11.22 Type 2 diabetes mellitus with diabetic chronic kidney disease; K52.1 Toxic gastroenteritis and colitis; T36.95XA Adverse effect of unspecified systemic antibiotic, initial encounter; R22.2 Localized swelling, mass and lump, trunk; K62.89 Other specified diseases of anus and rectum; D63.1 Anemia in chronic kidney disease; I48.2 Chronic atrial fibrillation; I95.9 Hypotension, unspecified; G47.33 Obstructive sleep apnea (adult) (pediatric); N28.1 Cyst of kidney, acquired; E78.5 Hyperlipidemia, unspecified; D86.86 Sarcoid arthropathy; M10.9 Gout, unspecified; M25.552 Pain in left hip; E66.9 Obesity, unspecified; Z68.34 Body mass index [BMI] 34.0-34.9, adult; Z99.81 Dependence on supplemental oxygen; Z95.3 Presence of xenogenic heart valve; Z99.2 Dependence on renal dialysis; Z85.828 Personal history of other malignant neoplasm of skin; Z89.512 Acquired absence of left leg below knee; Z90.710 Acquired absence of both cervix and uterus; Z86.14 Personal history of Methicillin resistant Staphylococcus aureus infection; Z79.01 Long term (current) use of anticoagulants; Z79.2 Long term (current) use of antibiotics; Z79.4 Long term (current) use of insulin
CPT/HCPCS: 71045; 72132; 72192; 74177; 76881; 80048; 80053; 80069; 80170; 80202; 81003; 82272; 82948; 83036; 83605; 83690; 84484; 85014; 85018; 85025; 85027; 85610; 85651; 85730; 86140; 87040; 87077; 87147; 87186; 87493; 87801; 93306; 93312; 93325; 94799; 99281; 99285; G0378; J0881; J1580; J1815; J2405; J3010; J3370; J7040; J7050; P9047